=== PATIENT | female | born 1985 | race Two or more races ===

== ENCOUNTER 2017-11-22 12:14 | Inpatient (IN) | payer OTHER ==
[~2017-11-22] VITALS: Ht 160 cm; Wt 67.1 kg
== END 2017-11-28 10:23 | DRG 775 ==
LOC: OB/GYN 12:14 → LDR 11-26 05:13 → OB/GYN 11-26 05:42 → LDR 11-26 07:57 → OB/GYN 11-26 19:33
PROC: 10E0XZZ Delivery of Products of Conception, External Approach (ICD-10-PCS; principal; 2017-11-26)
PROC: 0W8NXZZ Division of Female Perineum, External Approach (ICD-10-PCS; 2017-11-26)
PROC: 4A1HXCZ Monitoring of Products of Conception, Cardiac Rate, External Approach (ICD-10-PCS; 2017-11-26)
PROC: 3E033VJ Introduction of Other Hormone into Peripheral Vein, Percutaneous Approach (ICD-10-PCS; 2017-11-26)
DX: O80 Encounter for full-term uncomplicated delivery (principal); Z3A.40 40 weeks gestation of pregnancy; Z37.0 Single live birth

== ENCOUNTER 2021-03-22 07:59 | Day surgery (SDC) | payer OTHER ==
[~2021-03-22 07:59] MED LIST: MULTIPLE VITAM1 EAC2 PO
== END 2021-03-22 14:25 | disposition home or self-care (01) ==
LOC: CIR.AMB 07:59
PROVIDERS: ATTEND Specialist
DX: O02.1 Missed abortion (principal); Z20.822 Contact with and (suspected) exposure to COVID-19

== ENCOUNTER 2024-08-22 09:15 | Inpatient (IN) | payer OTHER ==
[~2024-08-22] VITALS: Ht 152.4 cm; Wt 47.2 kg
[2024-08-22 10:33] VITALS: BP 108/73
[2024-08-22] MEDS ORDERED: HYOSCYAMINE0.125 M2 PO (10:43)
[2024-08-22] MEDS ORDERED: MIRALAX17 GM PO (10:43)
[2024-08-22] MEDS ORDERED: UBRELVY100 MG PO (10:43)
[2024-08-22] MEDS ORDERED: DICY20TA PO (10:44)
[2024-08-22] MEDS ORDERED: SIMETHICONE125 M1 (10:44)
[2024-08-22] MEDS ORDERED: TYLENOL ARTHRI650 MG PO (10:45)
[2024-08-22] MEDS ORDERED: APPLE CIDER VI250 MG PO (10:45)
[2024-08-30] MEDS ORDERED: BUPIVACAINE HCL 30 ML VIAL IJ ONE (11:15)
[2024-08-30] MEDS ORDERED: METRONIDAZOLE/SODIUM CHLORIDE 500 MG/100 ML PIGGYBACK IV ONE (11:15)
[2024-08-30] MEDS ORDERED: LIDOCAINE HCL 1%/EPINEPHRINE 20ML VIAL IJ ONE (11:15)
[2024-08-30] MEDS ORDERED: CEFTRIAXONE SODIUM 2,000 MG VIAL IV ONE (11:15)
[2024-08-30] MEDS ORDERED: DEXTROSE 50 % IN WATER 0.5 G/ML VIAL IV PRN (11:45)
[2024-08-30] MEDS ORDERED: RINGERS SOLUTION,LACTATED 1,000 ML IV SCH (11:45)
[2024-08-30] MEDS ORDERED: MORPHINE SULFATE 4 MG/ML CARTRIDGE IV PRN (11:45)
[2024-08-30] MEDS ORDERED: ONDANSETRON HCL 2 MG/ML VIAL IV PRN (11:45)
[2024-08-30] MEDS ORDERED: OxyCODONE HCL 5 MG TABLET (ROXICODONE) PO PRN (11:45)
[2024-08-30] MEDS ORDERED: MORPHINE SULFATE 4 MG/ML VIAL IV ONE (13:10)
[2024-08-30 13:14] LABS: BASO % 0.4 % (0.1-1.2); EOS # 0.02 (0.04-0.54); EOS % 0.2 % (0.7-7.0); LYMPH # 1.25 (1.18-3.74); LYMPH % 9.6 % (19.3-53.1); MEAN PLATELET VOLUME 10.10 fl (9.4-12.4); MONO # 0.77 (0.24-0.82); MONO % 5.9 % (4.7-12.5); NEUT # 10.88 (1.56-6.13); NEUT % 83.5 % (34.0-71.1); RED CELL DISTRIBUTION WIDTH 12.2 % (11.6-14.4)
[2024-08-30 13:51] LABS: BUN CREA RATIO 7.0 (7.0-25.0); CREATININE SERUM 0.71 mg/dL (0.55-1.02); GFR 90.72; GLUCOSE FASTING 135.0 mg/dL (65-100); OSMOLALITY SERUM 282.0 MOSM/KG (275-295)
[2024-08-30] MEDS ORDERED: ACETAMINOPHEN 500 MG GEL..CAP PO SCH (14:00)
[2024-08-30] MEDS ORDERED: POTASSIUM PHOS,M-BASIC-D-BASIC 15 MM in 0.9 % SODIUM CHLORIDE 250 ML IV ONE (17:00)
[2024-08-30] MEDS ORDERED: GABAPENTIN 300 MG CAPSULE PO SCH (17:00)
[2024-08-30] MEDS ORDERED: POLYETHYLENE GLYCOL 3350 17 GM BLIST.PACK PO SCH (17:00)
[2024-08-30 18:14] VITALS: BP 114/74; O2SAT 100
[2024-08-30] MEDS ORDERED: FAMOTIDINE/PF 20 MG/2 ML VIAL IV PUSH SCH (21:00)
[2024-08-31 00:37] VITALS: BP 100/52; O2SAT 100
[2024-08-31 07:01] LABS: BASO % 0.4 % (0.1-1.2); EOS # 0.05 (0.04-0.54); EOS % 0.5 % (0.7-7.0); LYMPH # 1.99 (1.18-3.74); LYMPH % 19.1 % (19.3-53.1); MEAN PLATELET VOLUME 10.80 fl (9.4-12.4); MONO # 1.08 (0.24-0.82); MONO % 10.4 % (4.7-12.5); NEUT # 7.25 (1.56-6.13); NEUT % 69.4 % (34.0-71.1); RED CELL DISTRIBUTION WIDTH 12.4 % (11.6-14.4)
[2024-08-31 07:35] LABS: BUN CREA RATIO 7.0 (7.0-25.0); CREATININE SERUM 0.72 mg/dL (0.55-1.02); GFR 89.26; GLUCOSE FASTING 79.0 mg/dL (65-100); OSMOLALITY SERUM 276.0 MOSM/KG (275-295)
[2024-08-31 08:00] VITALS: BP 121/79; O2SAT 96
[2024-08-31 16:37] VITALS: BP 159/67
[2024-08-31] MEDS ORDERED: ENOXAPARIN SODIUM 40 MG/0.4 ML SYRINGE SUBCUTANEO SCH (17:00)
[2024-08-31 17:36] VITALS: BP 104/77; O2SAT 97
[2024-09-01 02:16] VITALS: BP 92/56; O2SAT 99
[2024-09-01 08:54] VITALS: BP 107/74; O2SAT 100
[2024-09-01] MEDS ORDERED: ENOXAPARIN SODIUM 40 MG/0.4 ML SYRINGE SUBCUTANEO SCH (09:00)
[2024-09-01 16:14] VITALS: BP 104/72; O2SAT 100
[2024-09-02 00:30] VITALS: BP 106/67; O2SAT 100
[2024-09-02] MEDS ORDERED: TYLENOL ARTHRI650 MG PO (07:12)
[2024-09-02] MEDS ORDERED: NEURONTIN300 MG PO (07:12)
[2024-09-02] MEDS ORDERED: INTESTINEX680 M1 PO (07:12)
[2024-09-02 08:16] LABS: BASO % 0.3 % (0.1-1.2); EOS # 0.15 (0.04-0.54); EOS % 1.7 % (0.7-7.0); LYMPH # 1.35 (1.18-3.74); LYMPH % 15.1 % (19.3-53.1); MEAN PLATELET VOLUME 9.90 fl (9.4-12.4); MONO # 0.63 (0.24-0.82); MONO % 7.0 % (4.7-12.5); NEUT # 6.76 (1.56-6.13); NEUT % 75.7 % (34.0-71.1); RED CELL DISTRIBUTION WIDTH 12.4 % (11.6-14.4)
== END 2024-09-02 11:59 | disposition home or self-care (01) | DRG 331 ==
LOC: O/R 08-30 07:55 → SURG 08-30 07:55 → SURH 08-30 09:15 → SURG 08-30 12:45 → SURH 08-30 20:15 → SURG 09-02 11:59
PROVIDERS: ADMIT Surgery; ATTEND Surgery
PROC: 0DBP4ZZ Excision of Rectum, Percutaneous Endoscopic Approach (ICD-10-PCS; 2024-08-30)
PROC: 0DTN4ZZ Resection of Sigmoid Colon, Percutaneous Endoscopic Approach (ICD-10-PCS; principal; 2024-08-30 20:15)
DX: K56.2 Volvulus (principal)